=== PATIENT | female | born 1980 | race Caucasian/White ===

== ENCOUNTER 2018-11-22 11:51 | Emergency (ER) | payer MEDICAID, SELFPAY ==
[2018-11-22 11:53] VITALS: BP 128/78; PULSE 108; RESP 17; TEMP 36.9; O2SAT 99; BMI 23.9
--- NOTE | 2018-11-22 12:09 | US_ITS ---
STUDY: FIRST TRIMESTER OBSTETRICAL ULTRASOUND REASON FOR EXAM: Female, 38 years old. Sharp pelvic pain. LMP: October 02, 2018. TECHNIQUE: Transvaginal TECHNICAL QUALITY: Adequate. PRIOR ULTRASOUND: None. FINDINGS: There is visualization of a single gestational sac in a normal intrauterine position. The mean sac diameter (MSD) measures 3.06 cm, indicating an estimated gestational age (EGA) of 8 weeks, 3 days. The gestational sac shape is within normal limits. There is a visualized yolk sac. The yolk sac measures 3.2 mm. The placenta is non-visualized. There is visualization of a live embryo. The crown-rump length (CRL) measures 1.47 cm, indicating an estimated gestational age (EGA) of 7 weeks, 6 days. There is demonstrated cardiac activity with a heart rate of 151 bpm. The estimated gestation age (EGA) by LMP is 7 weeks, 2 days. The estimated date of delivery (MANDEEP) by LMP is July 09, 2019. The estimated gestation age (EGA) by US is 8 weeks, 1 days. The estimated date of delivery (MANDEEP) by US is July 03, 2019. The uterus measures 10.2 cm x 7.2 cm by 6.1 cm. There is no demonstrated uterine fibroid. The cervix is closed. The right ovary measures 2.9 cm x 2 cm x 1.7 cm. There is no right ovarian cyst. There is no visualized right adnexal mass or complex lesion. The left ovary measures 2.7 cm x 1.6 cm x 1.2 cm. There is no left ovarian cyst. There is no visualized left adnexal mass or complex lesion. There is minimal fluid in the cul de sac. US/Transvaginal w/Preg US IMPRESSION: Single live intrauterine gestation with mean gestational age of 8 weeks and 1 day. Electronically Signed: Aram Chua, at 13:42 EDT , Service support ,
[2018-11-22 12:32] LABS: Absolute Lymphocyte Count 2.28 X10^3/uL (0.83-4.51); Basophil# 0.03 X10^3/uL; Basophil% 0.3 % (0-1); Eosinophil# 0.08 X10^3/uL; Eosinophils% 0.7 % (0-5); Hematocrit 39.7 % (37-47); Hemoglobin 13.9 g/dL (12.0-15.0); Lymphocyte # 2.28 X10^3/ul (4.0); Lymphocyte % 20.6 % (19-41); Mean Corpuscular Hgb 31.2 pg (27.0-32.0); Mean Platelet Vol. 9.4 fl (6.2-12.0); Monocyte# 0.69 X10^3/uL; Monocyte% 6.2 % (0-10); NRBC Flagged by Analyzer 0 % (0-5); Neutrophil # 7.95 X10^3/uL (2.7-7.7); Neutrophil % 71.8 % (47-70); Platelet Count 224 K/mm3 (150-450); RBC Distribution Width CV 12.9 % (11.6-14.6); Red Blood Count 4.46 M/mm3 (4.2-5.4); White Blood Count 11.1 K/mm3 (4.4-11.0)
[2018-11-22 12:47] LABS: Anion Gap 8 (5-15); BUN 6 mg/dL (7-18); BUN/Creat Ratio 7.8 RATIO (10-20); Calcium,Total 8.6 mg/dL (8.5-10.1); Chloride 106 mmol/L (98-107); Creatinine, Serum 0.77 mg/dL (0.55-1.02); EST Glomerular Filtration Rate 90 mL/min (>60); Est Glom Filt Rate - Afr Amer 109 mL/min (>60); Estimated Creatinine Clearance 93.65 ml/min; Glucose 90 mg/dL (74-106); Potassium 3.3 mmol/L (3.5-5.1); Sodium Level 137 mmol/L (136-145)
[2018-11-22 13:08] LABS: hCG Titer Quant., Serum 89561 mIU/mL (1-3)
[2018-11-22 13:40] LABS: Bacteria 0 SEEN /hpf (None Seen); Mucous, Urine 0 SEEN /hpf (<or=2+); Squamous Epithelial Cells - UA 0 SEEN /hpf (5-10)
[2018-11-22 13:48] LABS: Color, Urine Yellow (Yellow); Glucose, Dipstick Normal (Normal); Ketone-Dipstick 5 mg/dl (Negative); Leukocyte Esterase-Dipstick 25 /ul (Negative); Nitrite-Dipstick Negative (Negative); Occult Blood-Urine 25 /ul (Negative); Protein-Dipstick Negative (Negative); Urine Bilirubin Dipstick Negative (Negative); Urine Clarity Clear (Clear); Urine Urobilinogen Normal (Normal)
[2018-11-22 13:57] LABS: Red Blood Cells-Urine 0-5 SEEN /hpf (0-5); White Blood Cells 0-5 SEEN /hpf (0-5)
--- NOTE | 2018-11-22 14:19 | NURSING ---
DR PERNELL MOORE
--- NOTE | 2018-11-22 14:31 | ED.DCSUM_ITS ---
- ER Visit Summary Date of Service: 11/22/18 Chief Complaint: [Abdominal pain] History of Present Illness: The patient is a 38 F [the emergency department complaint of abdominal discomfort x2 days. She describes an intermittent sharp stabbing pain to the right lower quadrant that lasts a few minutes then r esolves. Patient will typically get the pain about twice a day. She denies any fever or vomiting. Patient is and her last menstrual period was October 02. Patient believes she is about 7 weeks . Patient is G4, P3. She denies any vaginal bleeding. She denies urinary symptoms. Patient denies any blood in her stool or black tarry stool.] Physical Examination: [HEENT-PERRLA, EOMI. Cranial nerves II through XII grossly intact. TMs clear. Mucous membranes moist. No adenopathy. Cardiovascular-regular rate and rhythm without murmur or ectopy Lungs-clear to auscultation, chest wall stable without crepitus or subcu emphysema Abdomen-normoactive bowel sounds, soft. Patient has minimal discomfort to the right lower quadrant. There is no rebound, rigidity, or perineal signs. Extremities-intact ?4, normal range of motion, normal pulses, atraumatic] Test Results: [CBC with additional weight of 11.1, hemoglobin 14, hematocrit 40, placed 224. Chemistries unremarkable. Urinalysis was normal. Quant was 89,564. Ultrasound of the pelvis obtained showed a single live intrauterine measuring 8 weeks and 1 day.] Emergency Department Course and Treatment: [Results discussed with patient. I discussed with Dr. Perez whom the patient would like to follow-up with for this . At this point I feel patient can be safely discharged home and follow-up as an outpatient. My suspicion for appendicitis is extremely low. I discussed with patient possible imaging however given that she is and early on in and the risk of radiation and my low suspicion I did not feel this was indicated at this time and patient's complete agreement.] Treatment Plan: [Follow-up with [facility] within next 5 to 7 days. Patient advised to return if worsening pain, fever, vomiting, or conditions worsen anyway.] Disposition: [Discharged home stable condition] Impression: [Jeanmarie pain-etiology uncertain ] This note was generated with [employer] software. It may contain incorrect words, spelling, and punctuation that were not noted in review of the chart prior to signing ED Disposition - Plan for ED Patient: Referrals: Care Physician,No Primary [Primary Care Provider] -
--- NOTE | 2018-11-22 14:35 | ED.DEP ---
ED Disposition - Plan for ED Patient: Instructions: ABDOMINAL PAIN, Unknown Cause, (Female) Referrals: Care Physician,No Primary [Primary Care Provider] - Kimmie Perez MD [STAFF PHYSICIAN] - 5-7 Days
[2018-11-22 15:08] VITALS: BP 117/83; PULSE 97; RESP 14; O2SAT 97
== END 2018-11-22 15:08 | disposition home or self-care (01) ==
PROVIDERS: Emergency Provider Emergency Medicine
DX: O26.891 Other specified pregnancy related conditions, first trimester (principal); R10.31 Right lower quadrant pain; O99.331 Smoking (tobacco) complicating pregnancy, first trimester; F17.200 Nicotine dependence, unspecified, uncomplicated; Z3A.08 8 weeks gestation of pregnancy
CPT/HCPCS: 76817; 80048; 81001; 84702; 85025; 99283; A4216

== ENCOUNTER 2021-04-20 12:45 | Outpatient (CLI) | payer MEDICAID, SELFPAY | END 2021-04-20 23:59 | disposition short-term general hospital (02) | LOC: LABSPEC 12:47 | PROVIDERS: Referring Provider Physician Assistant Surgical; Visit Provider Physician Assistant Surgical | DX: U07.1 COVID-19 (principal) | CPT/HCPCS: 87635; U0003; U0005 ==